=== PATIENT | male | born 1965 | race African-American/Black ===

== ENCOUNTER 2016-05-04 18:01 | Emergency (ER) | payer MEDICAID, MEDICARE ==
[~2016-05-04] VITALS: Ht 167.6 cm; Wt 83.0 kg
[~2016-05-04 18:01] MED LIST: ALLO100T PO; AMIT25TA9 PO; AMLO10TA80 PO; ATOR80TA76 PO; DULO30CA2 PO; GABA-531 PO; HYDR12.54 PO; MOBI7 PO; OMEP20CA10 PO
[2016-05-04] MEDS ORDERED: ASPIRIN 81MG TABLET PO ONE (18:45)
[2016-05-04 19:10] LABS: BASOPHILS % 1.4 % (0.0-2.0); EOSINOPHILS % 8.7 % (0.0-5.0); HEMATOCRIT. 43.1 % (42.0-52.0); HEMOGLOBIN. 14.2 g/dL (14.0-18.0); LYMPHOCYTES % 24.3 % (20.0-50.0); MEAN CORPUSCULAR HEMOGLOBIN 30.6 pg (28.0-32.0); MEAN PLATELET VOLUME 10.2 fl (7.4-10.4); MONOCYTES % 8.5 % (2.0-8.0); NEUTROPHILS % 57.1 % (40.0-76.0); PLATELET 194 x1000/uL (130-400); RED BLOOD CELL COUNT 4.64 mill/uL (4.7-6.1); WHITE BLOOD COUNT 8.4 x1000/uL (4.5-11.0)
[2016-05-04 19:19] LABS: INR 1.1; PROTHROMBIN TIME 11.2 sec
[2016-05-04 19:20] LABS: ALBUMIN 4.5 g/dL (3.4-5.0); ANION GAP 14; CALCIUM 8.9 mg/dL (8.5-10.1); CARBON DIOXIDE 28 mEq/L (21-32); CHLORIDE 103 mEq/L (98-107); INDEX HEMOLYSI 1 (1-3); INDEX ICTERIC 1 (1-4); INDEX LIPEMIC 1 (1-3); UREA NITROGEN BLOOD 18 mg/dL (7-21)
[2016-05-04 19:25] LABS: ALANINE AMINOTRANSFERASE 21 IU/L (13-61); eGFR 43 mL/min (>60)
[2016-05-04 19:26] LABS: NT PRO B-TYPE NATRIURETIC PEP 55 pg/mL (5-125); TROPONIN I < 0.02 ng/mL (0.00-0.04)
[2016-05-04] MEDS ORDERED: ACETAMINOPHEN WITH CODEINE 300/30MG TABLET PO ONE (21:00)
[2016-05-04 21:50] LABS: *AMPHETAMINES SCREEN URINE NEGATIVE (NEGATIVE); *BARBITURATES SCREEN URINE NEGATIVE (NEGATIVE); *BENZODIAZEPINES SCREEN URINE NEGATIVE (NEGATIVE); *COCAINE SCREEN URINE NEGATIVE (NEGATIVE); CANNABINOID URINE SCREEN PRESUMTIVE POSITIVE (NEGATIVE); ECSTASY MDMA SCREEN URINE NEGATIVE (NEGATIVE); METHADONE URINE SCREEN NEGATIVE (NEGATIVE); OPIATES URINE SCREEN NEGATIVE (NEGATIVE); PHENCYCLIDINE URINE SCREEN NEGATIVE (NEGATIVE)
[2016-05-04 23:10] VITALS: BP 117/76
== END 2016-05-05 00:05 | disposition home or self-care (01) ==
LOC: ER 18:01
DX: R07.89 Other chest pain (principal); N28.9 Disorder of kidney and ureter, unspecified; Z86.73 Personal history of transient ischemic attack (TIA), and cerebral infarction without residual deficits; Z79.899 Other long term (current) drug therapy
CPT/HCPCS: 36415; 71010; 80053; 80305; 83880; 84484; 85025; 85610; 93005; 99285; Z7610

== ENCOUNTER 2016-07-03 15:02 | Emergency (ER) | payer MEDICAID ==
[~2016-07-03] VITALS: Ht 167.6 cm; Wt 79.0 kg
[2016-07-03] MEDS ORDERED: ASPIRIN 81MG TABLET PO ONE (16:15)
[2016-07-03 16:21] LABS: EOSINOPHILS % 6.5 % (0.0-5.0); HEMATOCRIT. 42.6 % (42.0-52.0); LYMPHOCYTES % 18.3 % (20.0-50.0); MEAN CORPUSCULAR HEMOGLOBIN 30.2 pg (28.0-32.0); MEAN CORPUSCULAR VOLUME 91.4 fL (80.0-94.0); MEAN PLATELET VOLUME 10.4 fl (7.4-10.4); MONOCYTES % 7.6 % (2.0-8.0); NEUTROPHILS % 66.6 % (40.0-76.0); PLATELET 195 x1000/uL (130-400); RED BLOOD CELL COUNT 4.66 mill/uL (4.7-6.1); RED CELL DISTRIBUTION WIDTH 14.4 % (11.6-14.6); WHITE BLOOD COUNT 8.3 x1000/uL (4.5-11.0)
[2016-07-03 16:28] LABS: PROTHROMBIN TIME 10.7 sec
[2016-07-03 16:37] LABS: ALANINE AMINOTRANSFERASE 14 IU/L (13-61); ALBUMIN 4.3 g/dL (3.4-5.0); ANION GAP 11; CALCIUM 9.2 mg/dL (8.5-10.1); CARBON DIOXIDE 29 mEq/L (21-32); CHLORIDE 106 mEq/L (98-107); INDEX HEMOLYSI 1 (1-3); INDEX ICTERIC 1 (1-4); INDEX LIPEMIC 1 (1-3); TROPONIN I < 0.02 ng/mL (0.00-0.04); UREA NITROGEN BLOOD 14 mg/dL (7-21); eGFR 49 mL/min (>60)
[2016-07-03] MEDS ORDERED: ACETAMINOPHEN WITH CODEINE 300/30MG TABLET PO ONE (17:15)
[2016-07-03 20:00] VITALS: BP 136/97
== END 2016-07-03 21:00 | disposition home or self-care (01) ==
LOC: ER 16:22
DX: R07.89 Other chest pain (principal); N28.9 Disorder of kidney and ureter, unspecified; I10 Essential (primary) hypertension; Z86.73 Personal history of transient ischemic attack (TIA), and cerebral infarction without residual deficits; Z93.0 Tracheostomy status; Z96.659 Presence of unspecified artificial knee joint; Z93.1 Gastrostomy status; Z88.6 Allergy status to analgesic agent; Z79.899 Other long term (current) drug therapy
CPT/HCPCS: 36415; 71010; 80053; 84484; 85025; 85610; 93005; 99285; Z7610